=== PATIENT | female | born 1975 | race Caucasian/White ===

== ENCOUNTER 2017-07-03 11:31 | Emergency (ER) | payer SELFPAY ==
[~2017-07-03] VITALS: Wt 72.3 kg
[2017-07-03] MEDS ORDERED: LIDOCAINE 1% (MDV) 20 ML INJ SC ONE (13:00)
[2017-07-03] MEDS ORDERED: IBUPROFEN 600 MG TAB PO ONE (13:00)
[2017-07-03] MEDS ORDERED: IBUP-1542 PO (13:24)
[2017-07-03] MEDS ORDERED: DOXY100T20 PO (13:24)
--- NOTE | 2017-07-03 13:29 | ERD ---
ER Documentation Chief Complaint Chief Complaint abscess to l. axilla HPI This 42-year-old female presents with pain and swelling of left axilla. She has had a bump there for over a year but is gotten more red and more pain for the last week. She denies fevers, vomiting, shortness breath or chest pain. ROS All systems reviewed and are negative except as per history of present illness. Medications Home Meds Active Scripts Ibuprofen* (Motrin*) 600 Mg Tab, 600 MG PO Q6, #15 TAB Prov:NARCISA BRUNER MD 07/03/17 Doxycycline Hyclate* (Doxycycline Hyclate*) 100 Mg Tablet.dr, 100 MG PO BID for 7 Days, TAB Prov:NARCISA BRUNER MD 07/03/17 PMhx/Soc Medical and Surgical Hx: pt denies Medical Hx, pt denies Surgical Hx Hx Alcohol Use: No Hx Substance Use: No Hx Tobacco Use: No Smoking Status: Never smoker Physical Exam Vitals Vital Signs Date Time Temp Pulse Resp B/P Pulse Ox O2 Delivery O2 Flow Rate FiO2 07/03/17 11:34 99.0 77 20 137/79 99 Physical Exam Const: [] Alert, not ill-appearing. Head: Atraumatic Eyes: Normal Conjunctiva ENT: Normal External Ears, Nose and Mouth. Neck: Full range of motion..~ No meningismus. Resp: Clear to auscultation bilaterally Cardio: Regular rate and rhythm, no murmurs Abd: Soft, non tender, non distended. Normal bowel sounds Skin: No petechiae or rashes. Approximately 1 x 2 cm area of fluctuance and redness in the left axilla. No induration or streaking. No active discharge. Back: No midline or flank tenderness Ext: No cyanosis, or edema Neur: Awake and alert Psych: Normal Mood and Affect Results 24 hrs Current Medications Medications (Trade) Dose Ordered Sig/Marisa Route PRN Reason Start Time Stop Time Status Last Admin Dose Admin Lidocaine (Xylocaine 1% (Mdv) 20 ml) 20 ml ONCE ONCE SC 07/03/17 13:00 07/03/17 13:01 DC Ibuprofen (Motrin) 600 mg ONCE ONCE PO 07/03/17 13:00 07/03/17 13:01 DC 07/03/17 13:01 Procedures/MDM She presents with an abscess of left axilla. Previous bone suggest possible sebaceous cyst which has become infected. Procedure note-left axilla was prepped with Betadine. 3 cc lidocaine was used for local infiltration. #11 scalpel was used to incise the wound. Infected sebaceous material was expressed as well as partial sac was removed. Wound was packed with approximately 6 cm of quarter-inch gauze. And wound was dressed. Patient was discharged home with prescription ibuprofen and doxycycline for wound care and 2 day recheck for gauze removal. Return sooner for worsening redness, fevers, new symptoms. There is no signs of sepsis or necrotizing fasciitis. Departure Diagnosis: Primary Impression: Abscess Condition: Stable Patient Instructions: Abscess, Incision And Drainage Additional Instructions: Recheck in 2-3 days for gauze removal. Recheck sooner for worsening redness, fevers, new symptoms. NARCISA BRUNER MD Jul 03, 2017 13:29
== END 2017-07-03 18:12 | disposition home or self-care (01) ==
LOC: FTE 11:31
DX: L02.412 Cutaneous abscess of left axilla (principal)

== ENCOUNTER 2017-07-06 09:31 | Emergency (ER) | payer SELFPAY ==
[~2017-07-06] VITALS: Wt 68.2 kg
[~2017-07-06 09:31] MED LIST: DOXY100T20 PO; IBUP-1542 PO
--- NOTE | 2017-07-06 12:33 | ERD ---
ER Documentation Chief Complaint Chief Complaint i and d rechk HPI This is a 42-year-old female who presents the emergency department today for recheck of a wound that she had drained 2 days ago. States that she is taking her medications. Denies any fevers or chills. ROS All systems reviewed and are negative except as per history of present illness. Medications Home Meds Active Scripts Ibuprofen* (Motrin*) 600 Mg Tab, 600 MG PO Q6, #15 TAB Prov:NARCISA BRUNER MD 07/03/17 Doxycycline Hyclate* (Doxycycline Hyclate*) 100 Mg Tablet.dr, 100 MG PO BID for 7 Days, TAB Prov:NARCISA BRUNER MD 07/03/17 PMhx/Soc Hx Alcohol Use: No Hx Substance Use: No Hx Tobacco Use: No Physical Exam Vitals Vital Signs Date Time Temp Pulse Resp B/P Pulse Ox O2 Delivery O2 Flow Rate FiO2 07/06/17 09:34 97.3 84 20 136/85 99 Physical Exam Const: NAD Head: Atraumatic Eyes: Normal Conjunctiva ENT: Normal External Ears, Nose and Mouth. Neck: Full range of motion..~ No meningismus. Resp: Clear to auscultation bilaterally Cardio: Regular rate and rhythm, no murmurs Abd: Soft, non tender, non distended. Normal bowel sounds Skin: left axilla with mild drainage and evidence of packing placed. No erythema or warmth. Full active range of motion of shoulder. Back: No midline or flank tenderness Ext: No cyanosis, or edema Neur: Awake and alert Psych: Normal Mood and Affect Procedures/MDM This is a 42-year-old female who presents the emergency department today for wound check of the wound that she had drained a couple of days ago. Per review of the patient's medical records patient was seen here on July 03, 2017 and had an incision and drainage on the sebaceous cyst. Packing had been in place. Today I did remove the packing. There is some mild drainage however there is no erythema or warmth. Patient is afebrile and otherwise well-appearing. Low suspicion for sepsis, deep space tracking infection or cellulitis. Patient was instructed to continue taking her antibiotics as prescribed. She was instructed to follow-up with a primary care doctor. Area was redressed here in the emergency department. At this time the patient is stable for discharge and outpatient management. Patient should follow up with their PCP in the next 1-2 days. They may return to the emergency department sooner for any persistent or worsening of symptoms. Patient understood and agreed with the plan. Departure Diagnosis: Primary Impression: Encounter for wound re-check Condition: Fair Patient Instructions: Wound Care Ref[facility]: [facility] Pal se gillespie hecho un examen mdico de control que le indica que no est en bautista condicin que requiera tratamiento urgente en el Departamento de Emergencia. Un estudio ms profundo y el tratamiento de kingsley condicin pueden esperar sin ningn riesgo hasta que usted sea atendida/o en el consultorio de kingsley mdico o bautista cl mildred. Es responsabilidad suya arreglar bautista madhav para el seguimiento del willy. MANEJO DE CONDICIONES NO URGENTES EN EL FUTURO 1) Si usted tiene un mdico de atencin primaria: Usted debera llamar a kingsley mdico de atencin primaria antes de venir al departamento de emergencia. Despus de las horas de consultorio, kingsley doctor o kingsley asociado/a est disponible por telfono. El mdico o enfermero de kwan en el servicio telefnico puede asesorarle por paige medio para atender el problema, o willy contrario se puede programar bautista madhav. 2) Si usted no tiene un mdico de atencin primaria: Llame al mdico o clnica de referencia que aparece abajo wild las horas de consultorio para hacer bautista madhav para que le vean. CLINICAS: [facility] [phone] [address] [facility] [phone] [facility] [phone] [address] [facility] [phone] [address] [facility] [phone] 6801 [facility] [phone] [address] Additional Instructions: Llame al doctor MAANA y eileen bautista MADHAV PARA DENTRO DE 1-2 LOUIS.Dgale a la secretaria que nosotros le instruimos hacer esta madhav.Avise o llame si kingsley condicin se empeora antes de la madhav. Regresa aqui si peor o no mejor. Continue taking her antibiotics as prescribed. Keep wound clean and dry. NIKI CAMERON PA-C Jul 06, 2017 12:33
--- NOTE | 2017-07-06 12:33 | ERD ---
ER Documentation Chief Complaint Chief Complaint i and d rechk HPI This is a 42-year-old female who presents the emergency department today for recheck of a wound that she had drained 2 days ago. States that she is taking her medications. Denies any fevers or chills. ROS All systems reviewed and are negative except as per history of present illness. Medications Home Meds Active Scripts Ibuprofen* (Motrin*) 600 Mg Tab, 600 MG PO Q6, #15 TAB Prov:NARCISA BRUNER MD 07/03/17 Doxycycline Hyclate* (Doxycycline Hyclate*) 100 Mg Tablet.dr, 100 MG PO BID for 7 Days, TAB Prov:NARCISA BRUNER MD 07/03/17 PMhx/Soc Hx Alcohol Use: No Hx Substance Use: No Hx Tobacco Use: No Physical Exam Vitals Vital Signs Date Time Temp Pulse Resp B/P Pulse Ox O2 Delivery O2 Flow Rate FiO2 07/06/17 09:34 97.3 84 20 136/85 99 Physical Exam Const: NAD Head: Atraumatic Eyes: Normal Conjunctiva ENT: Normal External Ears, Nose and Mouth. Neck: Full range of motion..~ No meningismus. Resp: Clear to auscultation bilaterally Cardio: Regular rate and rhythm, no murmurs Abd: Soft, non tender, non distended. Normal bowel sounds Skin: left axilla with mild drainage and evidence of packing placed. No erythema or warmth. Full active range of motion of shoulder. Back: No midline or flank tenderness Ext: No cyanosis, or edema Neur: Awake and alert Psych: Normal Mood and Affect Procedures/MDM This is a 42-year-old female who presents the emergency department today for wound check of the wound that she had drained a couple of days ago. Per review of the patient's medical records patient was seen here on July 03, 2017 and had an incision and drainage on the sebaceous cyst. Packing had been in place. Today I did remove the packing. There is some mild drainage however there is no erythema or warmth. Patient is afebrile and otherwise well-appearing. Low suspicion for sepsis, deep space tracking infection or cellulitis. Patient was instructed to continue taking her antibiotics as prescribed. She was instructed to follow-up with a primary care doctor. Area was redressed here in the emergency department. At this time the patient is stable for discharge and outpatient management. Patient should follow up with their PCP in the next 1-2 days. They may return to the emergency department sooner for any persistent or worsening of symptoms. Patient understood and agreed with the plan. Departure Diagnosis: Primary Impression: Encounter for wound re-check Condition: Fair Patient Instructions: Wound Care Referrals: [facility] Pal se gillespie hecho un examen mdico de control que le indica que no est en bautista condicin que requiera tratamiento urgente en el Departamento de Emergencia. Un estudio ms profundo y el tratamiento de kingsley condicin pueden esperar sin ningn riesgo hasta que usted sea atendida/o en el consultorio de kingsley mdico o bautista cl mildred. Es responsabilidad suya arreglar bautista madhav para el seguimiento del willy. MANEJO DE CONDICIONES NO URGENTES EN EL FUTURO 1) Si usted tiene un mdico de atencin primaria: Usted debera llamar a kingsley mdico de atencin primaria antes de venir al departamento de emergencia. Despus de las horas de consultorio, kingsley doctor o kingsley asociado/a est disponible por telfono. El mdico o enfermero de kwan en el servicio telefnico puede asesorarle por paige medio para atender el problema, o willy contrario se puede programar bautista madhav. 2) Si usted no tiene un mdico de atencin primaria: Llame al mdico o clnica de referencia que aparece abajo wild las horas de consultorio para hacer bautista madhav para que le vean. CLINICAS: [facility] [phone] [address] [facility] [phone] [facility] [phone] [facility] [phone] [address] [facility] 670 [phone] 6801 [facility] [phone] [address] Additional Instructions: Llame al doctor MAANA y eileen bautista MADHAV PARA DENTRO DE 1-2 [place].Dgale a la secretaria que nosotros le instruimos hacer esta madhav.Avise o llame si kingsley condicin se empeora antes de la madhav. Regresa aqui si peor o no mejor. Continue taking her antibiotics as prescribed. Keep wound clean and dry. NIKI CAMERON PA-C Jul 06, 2017 12:33
--- NOTE | 2017-07-06 12:33 | ERD ---
ER Documentation Chief Complaint Chief Complaint i and d rechk HPI This is a 42-year-old female who presents the emergency department today for recheck of a wound that she had drained 2 days ago. States that she is taking her medications. Denies any fevers or chills. ROS All systems reviewed and are negative except as per history of present illness. Medications Home Meds Active Scripts Ibuprofen* (Motrin*) 600 Mg Tab, 600 MG PO Q6, #15 TAB Prov:NARCISA BRUNER MD 07/03/17 Doxycycline Hyclate* (Doxycycline Hyclate*) 100 Mg Tablet.dr, 100 MG PO BID for 7 Days, TAB Prov:NARCISA BRUNER MD 07/03/17 PMhx/Soc Hx Alcohol Use: No Hx Substance Use: No Hx Tobacco Use: No Physical Exam Vitals Vital Signs Date Time Temp Pulse Resp B/P Pulse Ox O2 Delivery O2 Flow Rate FiO2 07/06/17 09:34 97.3 84 20 136/85 99 Physical Exam Const: NAD Head: Atraumatic Eyes: Normal Conjunctiva ENT: Normal External Ears, Nose and Mouth. Neck: Full range of motion..~ No meningismus. Resp: Clear to auscultation bilaterally Cardio: Regular rate and rhythm, no murmurs Abd: Soft, non tender, non distended. Normal bowel sounds Skin: left axilla with mild drainage and evidence of packing placed. No erythema or warmth. Full active range of motion of shoulder. Back: No midline or flank tenderness Ext: No cyanosis, or edema Neur: Awake and alert Psych: Normal Mood and Affect Procedures/MDM This is a 42-year-old female who presents the emergency department today for wound check of the wound that she had drained a couple of days ago. Per review of the patient's medical records patient was seen here on July 03, 2017 and had an incision and drainage on the sebaceous cyst. Packing had been in place. Today I did remove the packing. There is some mild drainage however there is no erythema or warmth. Patient is afebrile and otherwise well-appearing. Low suspicion for sepsis, deep space tracking infection or cellulitis. Patient was instructed to continue taking her antibiotics as prescribed. She was instructed to follow-up with a primary care doctor. Area was redressed here in the emergency department. At this time the patient is stable for discharge and outpatient management. Patient should follow up with their PCP in the next 1-2 days. They may return to the emergency department sooner for any persistent or worsening of symptoms. Patient understood and agreed with the plan. Departure Diagnosis: Primary Impression: Encounter for wound re-check Condition: Fair Patient Instructions: Wound Care Referrals: [facility] Pal se gillespie hecho un examen mdico de control que le indica que no est en bautista condicin que requiera tratamiento urgente en el Departamento de Emergencia. Un estudio ms profundo y el tratamiento de kingsley condicin pueden esperar sin ningn riesgo hasta que usted sea atendida/o en el consultorio de kingsley mdico o bautista cl mildred. Es responsabilidad suya arreglar bautista madhav para el seguimiento del willy. MANEJO DE CONDICIONES NO URGENTES EN EL FUTURO 1) Si usted tiene un mdico de atencin primaria: Usted debera llamar a kingsley mdico de atencin primaria antes de venir al departamento de emergencia. Despus de las horas de consultorio, kingsley doctor o kingsley asociado/a est disponible por telfono. El mdico o enfermero de kwan en el servicio telefnico puede asesorarle por paige medio para atender el problema, o willy contrario se puede programar bautista madhav. 2) Si usted no tiene un mdico de atencin primaria: Llame al mdico o clnica de referencia que aparece abajo widl las horas de consultorio para hacer bautista madhav para que le vean. CLINICAS: [facility] [phone] [address] [facility] [phone] [facility] [phone] [address] [facility] [phone] [address] [facility] 005 [phone] 6801 [facility] [phone] [address] Additional Instructions: Llame al doctor MAANA y eileen bautista MADHAV PARA DENTRO DE 1-2 [place].Dgale a la secretaria que nosotros le instruimos hacer esta madhav.Avise o llame si kingsley condicin se empeora antes de la madhav. Regresa aqui si peor o no mejor. Continue taking her antibiotics as prescribed. Keep wound clean and dry. NIKI CAMERON PA-C Jul 06, 2017 12:33
== END 2017-07-06 13:22 | disposition left against medical advice (07) ==
LOC: FTE 09:31
DX: Z48.01 Encounter for change or removal of surgical wound dressing (principal)
CPT/HCPCS: 99281

== ENCOUNTER 2018-05-17 19:43 | Emergency (ER) | END 2018-05-17 21:30 | disposition home or self-care (01) ==

== ENCOUNTER 2018-12-17 20:44 | Emergency (ER) | payer MEDICAID ==
[~2018-12-17] VITALS: Ht 162.6 cm; Wt 77.9 kg
[2018-12-17 21:03] VITALS: Ht 162.6 cm; Wt 77.9 kg
[2018-12-18] MEDS ORDERED: morphine 4 MG/ML VIAL IV STA (00:14)
[2018-12-18] MEDS ORDERED: ONDANSETRON 4 MG INJ IV STA (00:14)
[2018-12-18] MEDS ORDERED: SOD CHLORIDE 0.9% 1,000 ML IV STA (00:14)
--- NOTE | 2018-12-18 03:36 | ERD ---
ER Documentation Chief Complaint Chief Complaint left flank pain x 2 weeks HPI This is a 43-year-old here with left flank pain times 2 weeks. Pain is mild to moderate in intensity with no exacerbating or alleviating factors. No fevers or chills. No other current issues. ROS All systems reviewed and are negative except as per history of present illness. Medications Home Meds Active Scripts Ibuprofen* (Motrin*) 600 Mg Tab, 600 MG PO Q6, #15 TAB Prov:NARCISA BRUNER MD 07/03/17 Doxycycline Hyclate* (Doxycycline Hyclate*) 100 Mg Tablet.dr, 100 MG PO BID for 7 Days, TAB Prov:NARCISA BRUNER MD 07/03/17 Allergies Allergies: Coded Allergies: No Known Allergy (Unverified , 05/17/18) PMhx/Soc Medical and Surgical Hx: pt denies Medical Hx, pt denies Surgical Hx Hx Alcohol Use: Yes (SOCIAL) Hx Substance Use: No Hx Tobacco Use: No Smoking Status: Never smoker Physical Exam Vitals Vital Signs Date Temp Pulse Resp B/P (MAP) Pulse Ox O2 O2 Flow FiO2 Time Delivery Rate 12/18/18 97.6 82 18 138/90 100 Room Air 00:25 (106) 12/17/18 97.6 77 18 137/75 99 21:03 (95) Physical Exam Const: No acute distress Head: Atraumatic Eyes: Normal Conjunctiva ENT: Normal External Ears, Nose and Mouth. Neck: Full range of motion. No meningismus. Resp: Clear to auscultation bilaterally Cardio: Regular rate and rhythm, no murmurs Abd: Soft, non tender, non distended. Normal bowel sounds Skin: No petechiae or rashes Back: No midline or flank tenderness Ext: No cyanosis, or edema Neur: Awake and alert Psych: Normal Mood and Affect Result Diagram: 12/18/18 0015 12/18/18 0015 Results 24 hrs Laboratory Tests Test 12/18/18 00:15 12/18/18 00:30 12/18/18 00:38 White Blood Count 9.0 10^3/ul Red Blood Count 4.35 10^6/ul Hemoglobin 13.6 g/dl Hematocrit 40.6 % Mean Corpuscular Volume 93.3 fl Mean Corpuscular Hemoglobin 31.3 pg Mean Corpuscular 33.5 g/dl Hemoglobin Concent Red Cell Distribution Width 12.6 % Platelet Count 235 10^3/UL Mean Platelet Volume 9.8 fl Immature Granulocytes % 0.300 % Neutrophils % 55.5 % Lymphocytes % 34.3 % Monocytes % 7.7 % Eosinophils % 1.8 % Basophils % 0.4 % Nucleated Red Blood Cells % 0.0 /100WBC Immature Granulocytes # 0.030 10^3/ul Neutrophils # 5.0 10^3/ul Lymphocytes # 3.1 10^3/ul Monocytes # 0.7 10^3/ul Eosinophils # 0.2 10^3/ul Basophils # 0.0 10^3/ul Nucleated Red Blood Cells # 0.0 10^3/ul Sodium Level 139 mmol/L Potassium Level 4.1 mmol/L Chloride Level 103 mmol/L Carbon Dioxide Level 26 mmol/L Anion Gap 10 Blood Urea Nitrogen 17 mg/dl Creatinine 0.51 mg/dl Est Glomerular Filtrat > 60 mL/min Rate mL/min Glucose Level 102 mg/dl Calcium Level 9.2 mg/dl Total Bilirubin 0.3 mg/dl Direct Bilirubin 0.00 mg/dl Indirect Bilirubin 0.3 mg/dl Aspartate Amino 13 IU/L Transf (AST/SGOT) Alanine 25 IU/L Aminotransferase (ALT/SGPT) Alkaline Phosphatase 88 IU/L Total Protein 7.3 g/dl Albumin 4.3 g/dl Globulin 3.00 g/dl Albumin/Globulin Ratio 1.43 Lipase 28 U/L Urine Color STRAW Urine Clarity SLIGHTLY CLOUDY Urine pH 7.0 Urine Specific [place] 1.011 Urine Ketones NEGATIVE mg/dL Urine Nitrite NEGATIVE mg/dL Urine Bilirubin NEGATIVE mg/dL Urine Urobilinogen NEGATIVE mg/dL Urine Leukocyte Esterase TRACE Duran/ul Urine Microscopic RBC 0 /HPF Urine Microscopic WBC 1 /HPF Urine Squamous Epithelial Cells FEW /HPF Urine Hemoglobin NEGATIVE mg/dL Urine Glucose NEGATIVE mg/dL Urine Total Protein NEGATIVE mg/dl POC Beta HCG, Qualitative NEGATIVE Current Medications Medications Dose Sig/Marisa Start Time Status Last (Trade) Ordered Route PRN Stop Time Admin Dose Reason Admin Sodium 1,000 ml @ Q1H STAT 12/18/18 DC 12/18/18 Chloride 1,000 mls/hr IV 00:14 00:46 12/18/18 01:13 Morphine 4 mg ONCE STAT 12/18/18 DC Sulfate IV 00:14 (morphine) 12/18/18 00:15 Ondansetron 4 mg ONCE STAT 12/18/18 DC HCl (Zofran IV 00:14 Inj) 12/18/18 00:15 Procedures/MDM EKG: Rate/Rhythm: [Normal Sinus Rhythm] QRS, ST, T-waves: [No changes consistent w/ acute ischemia] Impression: [No evidence of ischemia or arrhythmia] Chest X-ray 1V Interpreted by me: Soft Tissue: No acute ab normalities Bones: No acute abnormalities Mediastinum/Cardiac Silhouette/Lungs: [No acute abnormalities] Medical decision making: Patient's gastrointestinal symptoms have stabilized while in the department. No evidence of severe dehydration, sepsis, or surgical abdomen. Extensive discussion with family and patient that occult disease cannot be ruled out. 8 hour recheck for repeat abdominal exam is planned. Departure Diagnosis: Primary Impression: Flank pain Condition: Stable TACHO STEPHENSON Dec 18, 2018 03:36
[2018-12-18] MEDS ORDERED: CEPH250S33 PO (03:37)
[2018-12-18] MEDS ORDERED: TRAM50TA2 PO (03:37)
[2018-12-18 03:49] VITALS: BP 115/66; PULSE 92; RESP 18
== END 2018-12-18 03:51 | disposition home or self-care (01) ==
LOC: E/R 20:44
DX: R10.9 Unspecified abdominal pain (principal)
CPT/HCPCS: 36415; 74176; 80053; 81001; 81025; 83690; 85025; J7030; Z7502

== ENCOUNTER 2019-03-30 21:34 | Emergency (ER) | payer MEDICAID ==
[~2019-03-30] VITALS: Ht 160 cm; Wt 70.0 kg
[~2019-03-30 21:34] MED LIST changes: +CEPH250S33 PO; +NAPR-985 PO; +TRAM50TA2 PO
[2019-03-30 21:43] VITALS: Ht 160 cm; Wt 70.0 kg
[2019-03-31 02:18] VITALS: BP 122/76; PULSE 67; RESP 18
--- NOTE | 2019-04-02 13:28 | ERD ---
ER Documentation Chief Complaint Chief Complaint LLQ ABDOMINAL PAIN RADIATES TO LOWER BACK HPI This is a 44-year-old female with no significant past medical history presenting to the emergency department complaining of left flank and left lower quadrant abdominal pain intermittently for the past 4 days. Current pain is rated 6/10 in severity. She tried no medication for relief of symptoms. She denies any fevers, dysuria, nausea, vomiting, diarrhea, or other symptoms at this time. ROS All systems reviewed and are negative except as per history of present illness. Medications Home Meds Active Scripts Naproxen* (Naprosyn*) 500 Mg Tablet, 500 MG PO BID PRN for PAIN AND/OR INFLAMMATION, #30 TAB Prov:TACHO CARDONA PA-C 03/31/19 Tramadol HCl (Tramadol HCl) 50 Mg Tablet, 50 MG PO Q4 PRN for PAIN, #20 TAB Prov:TACHO STEPHENSON 12/18/18 Cephalexin* (Cephalexin* Susp) 250 Mg/5 Ml Susp.recon, 5 ML PO Q6 for 7 Days, BOTTLE Prov:TACHO STEPHENSON 12/18/18 Ibuprofen* (Motrin*) 600 Mg Tab, 600 MG PO Q6, #15 TAB Prov:NARCISA BRUNER MD 07/03/17 Doxycycline Hyclate* (Doxycycline Hyclate*) 100 Mg Tablet.dr, 100 MG PO BID for 7 Days, TAB Prov:NARCISA BRUNER MD 07/03/17 Allergies Allergies: Coded Allergies: No Known Allergy (Unverified , 05/17/18) PMhx/Soc Medical and Surgical Hx: pt denies Surgical Hx Hx Miscellaneous Medical Probl: Yes (Uti) Hx Alcohol Use: Yes (SOCIAL) Hx Substance Use: No Hx Tobacco Use: No FmHx Family History: diabetes Physical Exam Vitals Vital Signs Date Temp Pulse Resp B/P (MAP) Pulse Ox O2 O2 Flow FiO2 Time Delivery Rate 03/31/19 98.7 67 18 122/76 99 Room Air 02:18 (91) 03/30/19 98.4 77 18 128/64 97 21:43 (85) Physical Exam Const: No acute distress Head: Atraumatic Eyes: Normal Conjunctiva ENT: Normal External Ears, Nose and Mouth. Neck: Full range of motion. No meningismus. Resp: Clear to auscultation bilaterally Cardio: Regular rate and rhythm, no murmurs Abd: Soft, mild tenderness palpation of the left lower quadrant, no rebound tenderness or guarding, no McBurney's point tenderness, non distended. Normal bowel sounds Skin: No petechiae or rashes Back: No midline. Left flank tenderness on palpation Ext: No cyanosis, or edema Neur: Awake and alert Psych: Normal Mood and Affect Result Diagram: 03/30/19 2321 03/30/192320 Results 24 hrs Laboratory Tests Test 03/30/19 22:50 03/30/19 22:55 03/30/19 22:57 03/30/19 23:21 Urine Color YELLOW Urine Clarity CLOUDY Urine pH 5.0 Urine Specific 1.023 [place] Urine Ketones NEGATIVE mg/dL Urine Nitrite NEGATIVE mg/dL Urine Bilirubin NEGATIVE mg/dL Urine Urobilinogen NEGATIVE mg/dL Urine Leukocyte NEGATIVE Duran/ul Esterase Urine Microscopic 0 /HPF RBC Urine Microscopic 4 /HPF WBC Urine Squamous MODERATE /HPF Epithelial Cells Urine Calcium MANY /HPF Oxalate Crystals Urine Hemoglobin NEGATIVE mg/dL Urine Glucose NEGATIVE mg/dL Urine Total NEGATIVE mg/dl Protein POC Beta HCG, NEGATIVE Qualitative Bedside Urine pH 5.5 (LAB) Bedside Urine Negative Protein (LAB) Bedside Urine Negative Glucose (UA) Bedside Urine Negative Ketones (LAB) Bedside Urine Trace-intact Blood Bedside Urine Negative Nitrite (LAB) Bedside Urine Negative Leukocyte Esterase (L White Blood Count 6.4 10^3/ul Red Blood Count 4.16 10^6/ul Hemoglobin 12.9 g/dl Hematocrit 38.7 % Mean Corpuscular 93.0 fl Volume Mean Corpuscular 31.0 pg Hemoglobin Mean Corpuscular 33.3 g/dl Hemoglobin Concent Red Cell 12.7 % Distribution Width Platelet Count 213 10^3/UL Mean Platelet 9.9 fl Volume Immature 0.200 % Granulocytes % Neutrophils % 57.5 % Lymphocytes % 32.0 % Monocytes % 7.5 % Eosinophils % 2.3 % Basophils % 0.5 % Nucleated Red 0.0 /100WBC Blood Cells % Immature 0.010 10^3/ul Granulocytes # Neutrophils # 3.7 10^3/ul Lymphocytes # 2.1 10^3/ul Monocytes # 0.5 10^3/ul Eosinophils # 0.2 10^3/ul Basophils # 0.0 10^3/ul Nucleated Red 0.0 10^3/ul Blood Cells # Sodium Level 141 mmol/L Potassium Level 3.8 mmol/L Chloride Level 105 mmol/L Carbon Dioxide 27 mmol/L Level Anion Gap 9 Blood Urea 13 mg/dl Nitrogen Creatinine 0.51 mg/dl Est Glomerular > 60 mL/min Filtrat Rate mL/min Glucose Level 122 mg/dl Calcium Level 9.6 mg/dl Total Bilirubin 0.4 mg/dl Direct Bilirubin 0.00 mg/dl Indirect Bilirubin 0.4 mg/dl Aspartate Amino 25 IU/L Transf (AST/SGOT) Alanine 46 IU/L Aminotransferase ( ALT/SGPT) Alkaline 80 IU/L Phosphatase Total Protein 7.3 g/dl Albumin 4.4 g/dl Globulin 2.90 g/dl Albumin/Globulin 1.51 Ratio [place] [id number] Radiology Main Line: [phone] DIAGNOSTIC IMAGING REPORT Patient: EDIE MARQUEZ : 1975 Age: 44 Sex: F [id number] DOS: 03/30/19 2302 Ordering MD: TACHO CARDONA PA-C Location: [facility] Room/Bed: PROCEDURE: CT Abdomen and Pelvis without contrast. CLINICAL INDICATION: Left lower quadrant pain radiating to the back. TECHNIQUE: A CT scan of the abdomen and pelvis was performed without intravenous contrast. Coronal and sagittal reformatted images were generated. DICOM images are available. Images were reviewed on a high-resolution PACS workstation. CTDIvol: 14.51 mGy. DLP: 867.56 mGy-cm. One or more of the following dose reduction techniques were used: - Automated exposure control. - Adjustment of the mA and/or kV according to patient size. - Use of iterative reconstruction technique. COMPARISON: 12/18/2018 FINDINGS: There are minimal atelectatic changes in the lower lungs. Evaluation of the abdominal and pelvic viscera is limited by the lack of oral and intravenous contrast. The liver is unremarkable. The gallbladder is contracted. The common bile duct is not dilated. The spleen is not enlarged. No pancreatic lesion is identified and there is no pancreatic ductal dilatation. The adrenal glands are unremarkable. The kidneys are normal in size. There is no perinephric fat stranding. No hydronephrosis is seen. No urinary stone is identified. The small and large bowel are normal in caliber. There is no bowel wall thickening. The appendix is normal. The urinary bladder is unremarkable. The pelvic organs are within normal limits. No lymphadenopathy is identified. There is no ascites. No pneumoperitoneum is seen. There are no arterial calcifications. No suspicious osseous lesion is identified. IMPRESSION: No inflammation, mass, or lymphadenopathy. No obstructive uropathy or urinary stone. Normal appendix. RPTAT: HTAR .Baldo Albert MD, MD Date Time Electronically viewed and signed by .Baldo Albert MD, on 03/31/2019 00:54 Procedures/MDM 44-year-old female presenting to the emergency department complaining of left flank and left lower quadrant pain. Patient was stable throughout her ED course with no new complaints. She was administered pain medication with improvement of her symptoms. Patient was placed into a stretcher for further evaluation during her ED course. CBC: no e/o of systemic infection or severe anemia CMP: no e/o severe acidosis, alkalosis, renal failure, diabetic ketoacidosis, liver disease Lipase: no e/o pancreatitis PT/INR: normal coagulation Urine: no e/o acute infection or hematuria CT abdomen and pelvis without contrast revealed no significant acute ab normalities. Full report interpreted by the radiologist may be viewed above. Patient's gastrointestinal symptoms have stabilized while in the department. No evidence of severe dehydration, sepsis, or surgical abdomen. Extensive discussion with family and patient that occult disease cannot be ruled out. 8 hour recheck for repeat abdominal exam is planned. Departure Diagnosis: Primary Impression: Abdominal pain Condition: Fair Patient Instructions: Abdominal Pain Ref[facility]: [facility] Usted se gillespie hecho un examen mdico de control que le indica que no est en bautista condicin que requiera tratamiento urgente en el Departamento de Emergencia. Un estudio ms profundo y el tratamiento de kingsley condicin pueden esperar sin ningn riesgo hasta que usted sea atendida/o en el consultorio de kingsley mdico o bautista clnica. Es responsabilidad suya arreglar bautista madhav para el seguimiento del willy. MANEJO DE CONDICIONES NO URGENTES EN EL FUTURO 1) Si usted tiene un mdico de atencin primaria: Usted debera llamar a kingsley mdico de atencin primaria antes de venir al departamento de emergencia. Despus de las horas de consultorio, kingsley doctor o kingsley asociado/a est disponible por telfono. El mdico o enfermero de kwan en el servicio telefnico puede asesorarle por paige medio para atender el problema, o willy contrario se puede programar bautista madhav. 2) Si usted no tiene un mdico de atencin primaria: Llame al mdico o clnica de referencia que aparece abajo wild las horas de consultorio para hacer bautista madhav para que le vean. CLINICAS: [facility] [phone] [facility] [phone] [facility]. [facility] [phone] [address] [facility]. [place] [phone] [facility] [place] [id number] [phone] [facility]. [phone] [address] Additional Instructions: Llame al doctor MAANA y eileen bautista MADHAV PARA DENTRO DE 1-2 [place].Dgale a la secretaria que nosotros le instruimos hacer esta madhav.Avise o llame si kingsley condicin se empeora antes de la madhav. Regresa aqui si peor o no mejor. TACHO CARDONA PA-C Apr 02, 2019 13:28
== END 2019-03-31 02:20 | disposition home or self-care (01) ==
LOC: E/R 21:34 → FTE 03-31 02:20
DX: R10.32 Left lower quadrant pain (principal)
CPT/HCPCS: 36415; 74176; 80053; 81001; 81025; 85025; 87086; Z7502; 81003